=== PATIENT | female | born 1965 | race Caucasian/White ===

== ENCOUNTER 2025-03-27 18:46 | Emergency (ER) | payer OTHER ==
[~2025-03-27] VITALS: Ht 152.4 cm; Wt 66.4 kg
[2025-03-27] MEDS ORDERED: MORPHINE SULFATE 4 MG/ML VIAL IV ONE (19:30)
[2025-03-27] MEDS ORDERED: SODIUM CHLORIDE 0.9% 1,000 ML IV ONE (19:30)
[2025-03-27 19:38] LABS: BASOPHILS 0.5 % (0.1-1.2); EOSINOPHILS 2.6 % (0.7-5.8); LYMPHOCYTES 16.5 % (19.3-51.7); MCH 26.9 PG (25.6-32.2); MCHC 31.9 g/dL (32.2-35.5); MCV 84.1 fL (79.4-94.8); MONOCYTES 9.8 % (4.7-12.5); NEUTROPHILS 69.9 % (34.0-71.1); RBC 3.72 M/uL (3.93-5.22)
[2025-03-27 19:54] LABS: ALT (SGPT) 19.0 U/L (14-59); AST (SGOT) 11.0 U/L (15-37); GLOMERULAR FILTRATION RATE,EST 95.0 mL/min (>60); PROTEIN, TOTAL 8.0 g/dL (6.4-8.2); UREA NITROGEN 4.0 mg/dL (7-18)
[2025-03-27] MEDS ORDERED: methylPREDNISolone 4 MG HOME.PACK PO ONE (20:45)
[2025-03-27] MEDS ORDERED: SULFASALAZINE500 M1 PO (20:48)
[2025-03-27] MEDS ORDERED: ONDANSETRON ODT8 MG PO (20:48)
[2025-03-27] MEDS ORDERED: ONDANSETRON 4 MG HOME.PACK SL ONE (21:00)
[2025-03-27] MEDS ORDERED: HYDROCODONE BIT/ACETAMINOPHEN 5/325 MG 1 TAB HOME.PACK PO ONE (21:15)
[2025-03-27 21:20] VITALS: BP 130/90
== END 2025-03-27 21:21 | disposition home or self-care (01) ==
LOC: ED 18:46
PROVIDERS: Family Medicine
DX: K50.90 Crohn's disease, unspecified, without complications (principal); J45.909 Unspecified asthma, uncomplicated; Z88.5 Allergy status to narcotic agent
CPT/HCPCS: 36415; 74176; 80053; 83690; 85025; A9270; J2270; J2405; J7030